=== PATIENT | female | born 1975 | race Caucasian/White ===

== ENCOUNTER → 2017-10-05 15:26 | Outpatient (CLI) | payer OTHER, SELFPAY ==
[2017-10-12 11:42] LABS: HPV APTIMA, High Risk Negative (Negative)
== END ==
PROVIDERS: Visit Provider Obstetrics & Gynecology
DX: Z12.4 Encounter for screening for malignant neoplasm of cervix (principal)
CPT/HCPCS: 88175; G0145

== ENCOUNTER 2018-02-27 23:53 | Emergency (ER) | payer OTHER, SELFPAY ==
[2018-02-27 23:55] VITALS: BP 119/73; PULSE 99; RESP 18; TEMP 36.7; O2SAT 99; BMI 24.3
[2018-02-28] MEDS: 0.9% Normal Saline 1,000 ML 999 ML IV (00:16)
[2018-02-28] MEDS: Metoclopramide 10 MG/2 ML Vial IV (00:16)
[2018-02-28] MEDS: DiphenhydrAMINE 50 MG/ML Syringe IV (00:18)
[2018-02-28] MEDS: Ketorolac 30 MG/ML Syringe IV (00:20)
--- NOTE | 2018-02-28 00:40 | ED.VISSUMM ---
- ER Visit Summary Date of Service: 02/28/18 Chief Complaint: Headache History of Present Illness: The patient is a 42 F who goes to [facility]. She reports that she has a headache that began today. Is gradually gotten worse. It is a sharp pain over the left episcopal and left side of her head. Zeta 10 at worst and currently. Is worsened by light. She is taken Maxalt without relief. She has been nauseated. No vomiting. No fever. No change in her vision. No numbness or weakness. No recent injury to her head. She reports that she has had similar headaches multiple times in the past. Physical Examination: Vitals: Stable. Afebrile. General: Well-nourished and well-developed. Head: Normocephalic atraumatic. Neck: Supple, no lymphadenopathy. No JVD. Nontender. Cardiovascular: Regular rate and rhythm. No murmurs. Respiratory: No respiratory distress. Clear to auscultation bilaterally. Abdominal: Soft, nontender, nondistended, normal bowel sounds. No guarding, rebound, or peritoneal signs. Back: Nontender. Extremities: Nontender, no edema. Skin: Normal color, no rash. Neurologic: Alert and oriented ?3. Cranial nerves II through XII are intact. Normal strength and sensation. Psych: Normal affect. Emergency Department Course and Treatment: Patient had an IV placed. She was given Toradol, Reglan, Benadryl, and dexamethasone IV. She has had significant relief. Treatment Plan: Patient be discharged instructions to follow-up her primary care physician 1-2 days if not improving. Return to the emergency department for any worsening symptoms. Disposition: To home in improved and stable condition. Impression: 1. Migraine headache. This note was generated with [employer] software. It may contain incorrect words, spelling, and punctuation that were not noted in review of the chart prior to signing ED Disposition - Plan for ED Patient: Chief Complaint: Headache Instructions: ED Headache Migraine Referrals: Darci Nguyen MD [Primary Care Provider] - 1-2 Days if not improving
[2018-02-28 01:00] VITALS: BP 114/68; PULSE 78; RESP 18; O2SAT 99
== END 2018-02-28 01:01 | disposition home or self-care (01) ==
LOC: ED 02-28 00:35
PROVIDERS: Emergency Provider Emergency Medicine; Family Provider Family Medicine; PCP Family Medicine
DX: G43.909 Migraine, unspecified, not intractable, without status migrainosus (principal); F32.9 Major depressive disorder, single episode, unspecified; Z79.899 Other long term (current) drug therapy
CPT/HCPCS: 96361; 96374; 96375; 99283; J7030; A4216

== ENCOUNTER 2020-11-15 09:26 | Day surgery (SDC) | payer OTHER, SELFPAY ==
[2020-11-15] VITALS (7 sets, daily range): BP systolic 104–117; BP diastolic 73–87; PULSE 76–86; RESP 16; TEMP 36.1–36.7; O2SAT 96–100; BMI 27.2
[2020-11-15 10:05] LABS: Internal QC Validated? YES +Cl - CLEAR BKGD; Pregnancy, Urine Negative Negative
[2020-11-15] MEDS: Lactated Ringers 1,000 ML 100 ML IV (10:21)
--- NOTE | 2020-11-15 10:30 | IMM_PTH ---
PATIENT: YESENIA COOL LOC: EN U#:[id number] AGE/SX: 44/F ROOM: RE11/15/[address]: Dr. Brandon Sage DO : 1975 BED: DIS: 11/15/2020 SPEC #: [id number] RECD: 11/16/20 10:55 STATUS: VERITO REQ #: [id number] SHERMAN: 11/15/20 10:[address]: Brandon Sage DEPT: IMMUNOHISTOCHEMISTRY RECD BY: Jolanta Callahan ENTERED: 11/16/20 10:56 SP TYPE: IMMUNO OTHR DR: Jennifer Herrera, RN PALLIATIVE-C Tissues: A - Stomach, NOS Procedures: H Pylori (initial) PHYSICIAN & INSTITUTION [facility] [id number] SPECIMEN INFORMATION: Tissue Source: A ? Antrum biopsy Clinical Info: Abdomen pain, GERD Specimen Number: [id number] CPT code: 56337 METHODOLOGY: Deparaffinized sections of prefer/formalin-fixed tissue or PAP/DQ stained slides are incubated with monoclonal/polyclonal antibodies/oligonucleotide probes. Localization is made via biotin free immunoperoxidase method. Appropriate controls are performed and reacted as expected. Results on target cell population are indicated in the following table: RESULTS: ANTIBODY / CLONE RESULT Block A H Pylori (polyclonal) negative These tests were developed and their performance characteristics determined by [facility]. They may not have been cleared or approved by the U.S. Food and Drug Administration. The FDA has determined that such clearance or approval is not necessary. INTERPRETATION: A. Antrum biopsy: Negative for Helicobacter pylori organisms. AM:hailey 11/16/2020
--- NOTE | 2020-11-15 10:30 | EGD_PTH ---
PATIENT: YESENIA COOL LOC: EN U#:[id number] AGE/SX: 44/F ROOM: RE11/15/[address]: Dr. Brandon Sage DO : 1975 BED: DIS: 11/15/2020 SPEC #: [id number] RECD: 11/15/20 13:15 STATUS: VERITO RECaty #: [id number] SHERMAN: 11/15/20 10:[address]: Brandon Sage DEPT: SURGICAL PATHOLOGY RECD BY: Bernice Nelson ENTERED: 11/15/20 13:37 SP TYPE: EGD BIOPSY OT DR: Jennifer Herrera, PATIENT FINANCIAL SERVICES COORDINATOR-C Tissues: A - Gastric mucous membrane B - Duodenum, NOS C - Esophagus, NOS Procedures: Special Stain Group II Surgery Specimen Level IV Alcian Blue/PAS (control) HEADER OPERATION: EGD ([facility]) PRE-OP DIAGNOSIS: Abdomen pain, GERD TISSUE SUBMITTED: A ? Biopsy antrum for H. pylori and pain, B ? Biopsy duodenum, C ? Biopsy distal esophagus MICROSCOPIC DIAGNOSIS A. Gastric antrum, biopsy: Chronic gastritis. See comment. B. Duodenum, biopsy: No pathologic change. C. Distal esophagus, biopsy: Gastroesophageal junctional mucosa with chronic inflammation. No evidence of goblet cell metaplasia. Consistent with reflux esophagitis. See comment. AM:hailey 11/16/2020 COMMENT A. The results of immunohistochemistry for Helicobacter pylori will be reported separately ([id number]). C. Alcian blue/PAS stain with matched control supports the above diagnosis. MICROSCOPIC DESCRIPTION Slides are reviewed. GROSS DESCRIPTION A - Received in fixative is one container labeled with the patient's name and designated antrum biopsy. The specimen consists of multiple irregular fragments of light brooks soft tissue that in aggregate measure 1 x 0.3 x 0.1 cm. The specimen is totally submitted in one cassette. B - Received in fixative is one container labeled with the patient's name and designated biopsy duodenum. The specimen consists of multiple irregular fragments of light brooks soft tissue that in aggregate measure 2 x 0.3 x 0.1 cm. The specimen is totally submitted in one cassette. C - Received in fixative is one container labeled with the patient's name and designated biopsy distal esophagus. The specimen consists of multiple irregular fragments of light brooks soft tissue that in aggregate measure 0.5 x 0.3 x 0.1 cm. The specimen is totally submitted in one cassette. / SJ:rg 11/15/20 TC:3 CPT: 27646 x3, 20298
--- NOTE | 2020-11-15 10:59 | PCM.HP.BLA ---
History and Physical Date of Admission: 11/15/20 HPI HPI Details: AMINAH COOL, is a 44 F who presents to the office today for evaluation of abdominal pain and a possible anal fissure. Starting in March she would experience bilateral upper quadrants a burning sensation and chest pain would occur when she started getting hungry with varying intensity. She took prilosec for 14 days on three occasions in the last six months and this resolved her issues. It did come back so she tried a probiotic. And it helped a little bit but did not completely resolve her symptoms. She suffers from migraines and is not sure if her migraines are contributing to her symptoms of abdominal pain. She does get nauseous. And she also gets intermittent chest discomfort associated with worsening heartburn. She is also having difficulty on and off for years with a hemorrhoid issue that is most painful during , this summer was the worst she's had. Pain has improved but now there is a hard and sore spot located externally. Uses witch griselda, preparation H, numbing cream which helps during a flare. ROS Const Constitutional: Positive for headache(s) ENT ENT: Positive for headache(s) and sore throat Gastro GI: Positive for abdominal pain, bloating, constipation and heartburn Musc Musculoskeletal: Positive for joint pain, muscle weakness, numbness, stiffness and tingling Neuro Neurology: Positive for headache(s), numbness and tingling Exam Const General: cooperative and comfortable Nutritional Appearance: average body habitus and well nourished [facility] Head: normal to inspection Ears: hearing grossly normal bilaterally Nose: external nose normal Face and sinus: normal facial exam Mouth: oral mucosae normal Throat: posterior oropharynx normal Eyes General: appearance normal, both eyes and all related structures Neck Neck: normal visual inspection Chest Chest palpation & inspection: normal inspection of the chest and normal palpation of entire chest wall Resp Effort & Inspection: normal respiratory effort Auscultation: Bilateral: Clear to Auscultation Cardio Palpation: normal PMI Rate: regular rate Rhythm: regular rhythm GI Inspection: normal to inspection Auscultation: normal bowel sounds Percussion: normal to percussion Palpation: no hepatosplenomegaly Rectal Exam: hemorrhoids Other: External hemorrhoid tag Skin General: no rashes or lesions noted Neuro General: patient alert Extrem General: normal to inspection Psych Affect: normal affect Quality Reporting Tobacco Screening ([facility] 138) Smoking Status: Never smoker Assessment and Plan Assessment and Plan (1) Hemorrhoidal skin tag: Status: Acute Plan - Dr. Taylor Friend, DO: I will send her combination cream of diltiazem and lidocaine. Hopefully over 6-week. This will soften it and allow it to either fall off or completely shrink. (2) GERD (gastroesophageal reflux disease): Status: Acute Plan - Dr. Taylor Friend, DO: I would not put her back on a PPI at this time. We will get an upper endoscopy to evaluate her upper GI tract for any structural abnormality such as hiatal hernia, peptic ulcer disease, Public stenosis or gastritis and duodenitis. (3) Abdominal pain: Status: Acute Plan - Dr. Taylor Friend, DO: I think her abdominal pain is mostly secondary to her gastric issues. We will evaluate her upper GI tract thoroughly and make recommendations accordingly. Thank you very much for allowing me to participate in the care of this patient. This updated H&P from when the patient was seen in the office. Nothing has changed since she was seen in the office
--- NOTE | 2020-11-15 11:15 | OP.EGD_ITS ---
Patient Name: Heena Batres Procedure Date: 11/15/2020 10:56 AM Date of : 1975 Age: 44 Procedure: Upper GI endoscopy Indications: Epigastric abdominal pain Providers: Brandon Sage DO Referring MD: Jennifer Herrera Medicines: Monitored Anesthesia Care Patient Profile: This is a 44 year old female. Refer to note in patient chart for documentation of history and physical. Patient has symptoms of acute epigastric abdominal pain. The symptoms first began October. Complications: No immediate complications. Procedure: Pre-Anesthesia Assessment: - Prior to the procedure, a History and Physical was performed, and patient medications and allergies were reviewed. The patient is competent. The risks and benefits of the procedure and the sedation options and risks were discussed with the patient. All questions were answered and informed consent was obtained. Patient identification and proposed procedure were verified by the physician in the pre-procedure area. Mental Status Examination: alert and oriented. Airway Examination: normal oropharyngeal airway and neck mobility. Respiratory Examination: clear to auscultation. CV Examination: normal. Prophylactic Antibiotics: The patient does not require prophylactic antibiotics. Prior Anticoagulants: The patient has taken no previous anticoagulant or antiplatelet agents. ASA Grade Assessment: II - A patient with mild systemic disease. After reviewing the risks and benefits, the patient was deemed in satisfactory condition to undergo the procedure. The anesthesia plan was to use moderate sedation / analgesia (conscious sedation). Immediately prior to administration of medications, the patient was re-assessed for adequacy to receive sedatives. The heart rate, respiratory rate, oxygen saturations, blood pressure, adequacy of pulmonary ventilation, and response to care were monitored throughout the procedure. The physical status of the patient was re-assessed after the procedure. After obtaining informed consent, the endoscope was passed under direct vision. Throughout the procedure, the patient's blood pressure, pulse, and oxygen saturations were monitored continuously. The Endoscope was introduced through the mouth, and advanced to the second part of duodenum. The upper GI endoscopy was accomplished without difficulty. The patient tolerated the procedure well. Moderate Sedation: Moderate (conscious) sedation was administered by the endoscopy nurse and supervised by the endoscopist. The patient's oxygen saturation, heart rate, blood pressure and response to care were monitored. Scope In: 11:03:40 AM Scope Out: 11:10:37 AM Total Procedure Duration Time 0 hours 6 minutes 57 seconds Findings: LA Grade A (one or more mucosal breaks less than 5 mm, not extending between tops of 2 mucosal folds) esophagitis with no bleeding was found 34 to 35 cm from the incisors. Biopsies were taken with a cold forceps for histology. Verification of patient identification for the specimen was done. Estimated blood loss was minimal. Three non-bleeding cratered gastric ulcers with no stigmata of bleeding were found in the gastric antrum. The largest lesion was 5 mm in largest dimension. Biopsies were taken with a cold forceps for histology. Localized mild inflammation characterized by congestion (edema) was found in the duodenal bulb. Biopsies were taken with a cold forceps for histology. Impression: - LA Grade A reflux esophagitis. Biopsied. - Non-bleeding gastric ulcers with no stigmata of bleeding. Biopsied. - Duodenitis. Biopsied. Recommendation: - Await pathology results. - Repeat upper endoscopy in 1 year for surveillance. - Return to GI clinic in 1 week. - Continue present medications. Procedure Code(s): --- Professional --- 51975, Esophagogastroduodenoscopy, flexible, transoral; with biopsy, single or multiple CPT copyright 2017 [employer]. All rights reserved. The codes documented in this report are preliminary and upon category analyst review may be revised to meet current compliance requirements. Brandon Sage DO 11/15/2020 11:14:57 AM This report has been signed electronically. Number of Addenda: 1 Note Initiated On: 11/15/2020 10:56 AM Addendum Number: 1 Addendum Date: 10/06/2021 4:30:24 PM MAC was used instead of moderate sedation for this patient. Brandon Sage DO 10/06/2021 4:30:29 PM This report has been signed electronically.
--- NOTE | 2020-11-15 11:15 | OP.CCLET_ITS ---
10/06/2021 Jennifer Herrera Re : Upper GI endoscopy procedure for Heena Batres Dear Javier This procedure was performed on Sunday, November 15, 2020. My impressions and recommendations are as follows: Impressions : - LA Grade A reflux esophagitis. Biopsied. - Non-bleeding gastric ulcers with no stigmata of bleeding. Biopsied. - Duodenitis. Biopsied. Recommendations : - Await pathology results. - Repeat upper endoscopy in 1 year for surveillance. - Return to GI clinic in 1 week. - Continue present medications. My findings are described in the full procedure note, which is enclosed. If I can be of further assistance, please feel free to contact me at . Sincerely, Brandon Friend, 11/15/2020 11:14:57 AM This report has been signed electronically.
== END 2020-11-15 11:55 | disposition home or self-care (01) ==
LOC: EN 09:33 → AC 09:34
PROVIDERS: Anesthesiology; PCP Nurse Practitioner Primary Care; Referring Provider Nurse Practitioner Primary Care; Visit Provider Internal Medicine Gastroenterology
PROC: 0DJ08ZZ Inspection of Upper Intestinal Tract, Via Natural or Artificial Opening Endoscopic (ICD-10-PCS; CPT 43235; principal; 2020-11-15 10:25)
DX: K21.00 Gastro-esophageal reflux disease with esophagitis, without bleeding (principal); K25.9 Gastric ulcer, unspecified as acute or chronic, without hemorrhage or perforation; K29.80 Duodenitis without bleeding; K64.4 Residual hemorrhoidal skin tags; K29.50 Unspecified chronic gastritis without bleeding; R10.13 Epigastric pain; E78.5 Hyperlipidemia, unspecified; Z79.899 Other long term (current) drug therapy
CPT/HCPCS: 43239; 81025; 88305; 88313; 88342; J7120; J2405

== ENCOUNTER 2021-02-16 08:50 | Outpatient (CLI) | payer OTHER, SELFPAY ==
[2021-02-16 09:39] LABS: Free T3 3.1 pg/mL (2.18-3.98); T4 Total, Thyroxin 8.9 ug/dL (4.8-13.9); Thyroid Stim Hormone (TSH) 1.97 uIU/mL (0.358-3.74)
== END 2021-02-16 23:59 | disposition short-term general hospital (02) ==
PROVIDERS: PCP Nurse Practitioner Primary Care; Referring Provider Surgery; Visit Provider Surgery
DX: E04.1 Nontoxic single thyroid nodule (principal)
CPT/HCPCS: 36415; 84436; 84443; 84481

== ENCOUNTER 2021-02-21 10:44 | Outpatient (CLI) | payer OTHER, SELFPAY ==
--- NOTE | 2021-02-18 15:15 | FLU_PTH ---
PATIENT: YESENIA COOL LOC: [facility] U#:[id number] AGE/SX: 45/F ROOM: RE02/21/[address]: Dr. Saul Richmond MD : 1975 BED: DIS: 02/21/2021 SPEC #: [id number] RECD: 02/21/21 10:39 STATUS: VERITO RECaty #: [id number] SHERMAN: 02/18/21 15:[address]: aSul Richmond DEPT: CYTOLOGY RECD BY: Bernice Nelson ENTERED: 02/21/21 11:09 SP TYPE: Fluid OTHR DR: Jennifer Herrera, IMAGING SERVICES DIRECTOR-C Tissues: A - Thyroid gland, NOS B - Thyroid gland, NOS Procedures: Special Stain Group II Surgery Specimen Level IV Cytospin Fluid Cytology Other HEADER OPERATION: Right thyroid nodule fine needle aspiration PRE-OP DIAGNOSIS: Right thyroid nodule TISSUE SUBMITTED: A ? Right thyroid nodule fluid, B ? Right thyroid nodules x4 slides DIAGNOSIS CYTOLOGY A. Right thyroid nodule fluid, FNA (cytospin and cell block): Acellular specimen. See comment. B. Right thyroid nodule, FNA (smears): Consistent with benign colloid nodule. Adequate for evaluation. See comment. JOE:hailey 02/22/2021 COMMENT A. Follicular cells are not seen. Correlation with clinical, radiologic findings and appropriate follow up are necessary. Case has been reviewed in consultation with Dr. Lyn who concurs with the above diagnosis. IDC:AM CYTOLOGY STUDY Slides are reviewed. CYTOLOGY GROSS A - Received is 30 ml of pink cloudy fluid with particles labeled with the patient's name and and designated per the requisition as right thyroid nodule. Submitted for cytology preparation including cell block. B - Received are four smears labeled with the patient's name and designated per the requisition as right thyroid nodule. Submitted for staining. / hailey 02/21/2021 TC:5 CPT: 94606, 72737 x2
== END 2021-02-21 23:59 | disposition short-term general hospital (02) ==
LOC: LABSPEC 10:45
PROVIDERS: PCP Nurse Practitioner Primary Care; Referring Provider Surgery; Visit Provider Surgery
DX: E04.1 Nontoxic single thyroid nodule (principal)
CPT/HCPCS: 88108; 88161; 88305; 88313

== ENCOUNTER → 2022-02-16 | Outpatient (CLI) | payer OTHER, SELFPAY ==
--- NOTE | 2022-02-16 16:22 | US_ITS ---
STUDY: THYROID ULTRASOUND REASON FOR EXAM: Female, 46 years old. Thyroid nodule TECHNIQUE: Ultrasound evaluation of the thyroid was performed with real-time and static altamirano-scale imaging. COMPARISON: Comparison is made with prior study dated 08/01/2012. FINDINGS: RIGHT LOBE: The right lobe of the thyroid gland is mildly enlarged and measures 5.1 cm x 1.8 cm x 1.4 cm. There is a homogeneous echotexture. There are 4 subcentimeter hypoechoic solid/cystic nodules scattered throughout the right lobe. The largest measures 8 mm x 7 mm x 4 mm. LEFT LOBE: The left lobe of the thyroid gland measures 3.9 cm x 1.3 cm x 1.0 cm. There is a homogeneous echotexture. There is a 3 mm x 3 mm x 2 mm colloid cyst in the midportion of the left lobe. ISTHMUS: The isthmus measures 2 mm. The regional lymph nodes are normal. US/Thyroid IMPRESSION: 4, subcentimeter solid/cystic nodules in the right lobe of the thyroid. The largest measures 8 mm x 7 mm x 4 mm. 3 mm x 3 mm x 2 mm colloid cyst in the midportion of the left lobe of the thyroid. Electronically Signed: Herberth Winkler MD at 10:30 EST ,
== END | disposition home or self-care (01) ==
PROVIDERS: PCP Nurse Practitioner Primary Care; Referring Provider Surgery; Visit Provider Surgery
DX: E04.1 Nontoxic single thyroid nodule (principal)
CPT/HCPCS: 76536

== ENCOUNTER → 2022-05-18 | Outpatient (CLI) | payer OTHER, SELFPAY ==
[2022-05-25 13:07] LABS: HPV APTIMA, High Risk Negative (Negative)
== END | disposition home or self-care (01) ==
PROVIDERS: PCP Nurse Practitioner Primary Care; Referring Provider Obstetrics & Gynecology; Visit Provider Obstetrics & Gynecology
DX: Z12.4 Encounter for screening for malignant neoplasm of cervix (principal)
CPT/HCPCS: 87624; 88175; G0145

== ENCOUNTER → 2022-06-28 | Outpatient (CLI) | payer OTHER, SELFPAY | END | disposition home or self-care (01) | LOC: LABSPEC 16:38 | PROVIDERS: PCP Nurse Practitioner Primary Care; Referring Provider Obstetrics & Gynecology; Visit Provider Obstetrics & Gynecology | DX: N89.8 Other specified noninflammatory disorders of vagina (principal) | CPT/HCPCS: 87070; 87205 ==

== ENCOUNTER → 2023-01-22 | Outpatient (CLI) | payer OTHER, SELFPAY ==
--- NOTE | 2023-01-22 15:30 | BI_ITS ---
MAMMOGRAPHY - BILATERAL SCREENING REASON FOR EXAM: Female, 47 years old. Routine annual screening examination. PERTINENT HISTORY: Aunt with breast cancer. TECHNIQUE: Digital bilateral breast blake (3D mammographic acquisition) in the CC and MLO projections. 2-D mediolateral oblique (MLO) and craniocaudad (CC) views of both breasts were obtained. CAD: Full Field Digital Mammography with Computer Added Detection was performed. COMPARISON: Comparison is made with prior study examination December 14, 2021. FINDINGS: Breast Composition: The breasts are heterogeneously dense, which may obscure small masses. There are no dominant masses or suspicious calcifications. No other significant abnormalities are identified. There has been no significant change since the prior study. BI/SCRN MAMM (CAD)W/BLAKE BILAT IMPRESSION: Stable bilateral screening mammogram. Yearly follow-up mammogram recommended. (A) ASSESSMENT CATEGORY: BIRADS Category 1: Negative. A letter regarding these results will be sent to the patient by the facility within 30 days. Approximately 10% of breast cancers are not detected by mammography. A normal mammogram should not delay biopsy of a clinically suspicious abnormality. [id number] Electronically Signed: Herberth Winkler MD at 8:53 EST ,
== END | disposition home or self-care (01) ==
LOC: OPBI 15:30
PROVIDERS: PCP Nurse Practitioner Primary Care; Referring Provider Obstetrics & Gynecology; Visit Provider Obstetrics & Gynecology
DX: Z12.31 Encounter for screening mammogram for malignant neoplasm of breast (principal)
CPT/HCPCS: 77063; 77067

== ENCOUNTER → 2023-02-19 | Outpatient (CLI) | payer OTHER, SELFPAY ==
--- NOTE | 2023-02-19 15:57 | US_ITS ---
STUDY: THYROID ULTRASOUND REASON FOR EXAM: Female, 47 years old. yearly f/u thyroid nodule TECHNIQUE: Ultrasound evaluation of the thyroid was performed with real-time and static altamirano-scale imaging. COMPARISON: 02/16/2022 FINDINGS: RIGHT LOBE: The right lobe of the thyroid gland measures 4.8 x 1.4 x 1.4 cm. There is a homogeneous echotexture. Nodule 1: No change in the 12 x 5 x 7 mm solid hypoechoic wider than tall ill-defined margin nodule with no echogenic foci (TR 4) in the anterior right lobe and follow-up ultrasound is recommended in one year. Nodule 2: No change in the 7 x 3 x 5 mm solid hypoechoic wider than tall ill-defined margin nodule with no echogenic foci (TR 4) in the anterior right lobe consistent with an adenoma. Nodule 3: No change in the 5 x 4 x 5 mm solid hypoechoic wider than tall ill-defined margin nodule with no echogenic foci (TR 4) in the mid right lobe consistent with an adenoma. LEFT LOBE: The left lobe of the thyroid gland measures 4.2 x 1.2 x 1.1 cm. There is a homogeneous echotexture. There are no demonstrated solid, cystic or complex lesions. ISTHMUS: The isthmus measures 3 mm thick. . The regional lymph nodes are normal. US/Thyroid IMPRESSION: No change in multinodular thyroid gland. Electronically Signed: Gibran Fuentes MD at 23:24 EST ,
--- OUTSIDE RECORDS SUMMARY | 2023-02-19 16:08 | XMS RPT_ITS | CCD ---
Author Name Unknown Address [address] [address] [facility] [address] [place] [address] Organization [facility] Care Team Providers Care Glass Checker Name Role Phone BENIGNO YARBROUGH Unavailable Unavailable FAB PLUG GROWER-FIELD ACCOUNT DIRECTOR, ADRI Barragan Primary Care Physicia n Unknown, Referring Provider Unavailable Unav ailable Unavailable Unavailable Ms. Ever Lung Yan Attending Unavailable UNKNOWN, PCP Primary Care Unavailable Ever, Ms. Lung Yan Referring Unavailable UNKNOWN, PCP Primary Care Unavailable Ever, Ms. Lung Yan Referring Unavailable Ever, Ms. Lung Yan Attending Unavailable RUDI PLUG GROWER-FIELD ACCOUNT DIRECTOR, KELSEA Attending Unavailab le FAB PLUG GROWER-FIELD ACCOUNT DIRECTOR, ADRI S Primary Care Unava ilable FAB PLUG GROWER-FIELD ACCOUNT DIRECTOR, ADRI S Attending Unava ilable FAB PLUG GROWER-FIELD ACCOUNT DIRECTOR, ADRI S Primary Care Unava ilable FAB PLUG GROWER-FIELD ACCOUNT DIRECTOR, ADRI S Attending Unava ilable FAB PLUG GROWER-FIELD ACCOUNT DIRECTOR, ADRI S Primary Care Unava ilable REFERRING, GORDON DUBOIS ID Attending Unavailable FAB PLUG GROWER-FIELD ACCOUNT DIRECTOR, ADRI S Primary Care Unava ilable Medications Current Medications Medication Drug Class(es) Dates Sig (Normalized) Sig (Original) cetirizine hydrochloride 10 mg oral tablet (7 sources) Histamine-1 Receptor Antagonist Start: 10-05-2014 Zyrtec 10 mg oral tablet (NF) Dose : 10 mg = 1 tab(s), Oral, qDay Start Date: 10/05/14 Status: Ordered Completed/Discontinued Medications Medication Drug Class(es) Dates Sig (Normalized) Sig (Original) 1 ml alirocumab 75 mg/ml auto-injector (1 source) PCSK9 Inhibitor Start: 01-16-2022 inject 1 mL by subcutaneous injection every other week Praluent Pen 75 mg/mL subcutaneous solution Dose : 75 mg = 1 mL, Subcutaneous, q2wk, # 2 mL, 3 Refill(s), Pharmacy: [facility]/pharmacy #[id number], 171, cm, 01/11/22 14:48:00 EST, Height Start Date: 01/16/22 Status: Ordered buPROPion hydrochloride 100 mg oral tablet (7 sources) Aminoketone Start: 12-28-2021 take 1 tablet by mouth once daily buPROPion HCl - 100 MG Oral Tablet TAKE 1 TABLET EVERY 12 HOURS DAILY. Quantity: 60 Refills: 2 Ordered: 11-Apr-2022 Ever PLUG GROWER-FIELD ACCOUNT DIRECTOR, Lung Start : 28-Dec-2021 Active Problems Problem Classification Problem Date Documented Date Episodic/Chronic Abdominal pain (4 sources) Right upper quadrant pain 06-07-2020 Episodic Anxiety disorders (1 source) Anxiety 11-17-2021 Chronic Calculus of urinary tract (4 sources) Kidney stone 10-05-2014 Episodic Chronic kidney disease (1 source) Chronic kidney disease 11-20-2021 Chronic Conditions associated with dizziness or vertigo (2 sources) Vertigo; Translations: [Dizziness and giddiness] Episodic Disorders of lipid metabolism (4 sources) Hyperlipidemia 01-20-2020 Chronic Headache, including migraine (8 sources) Migraine without aura, not intractable, with status migrainosus; Translations: [Migraine] Onset: 09-22-2016 10-05-2014 Chronic Headache; including migraine (3 sources) Chronic headache disorder 01-20-2020 Episodic Malaise and fatigue (1 source) Fatigue 11-17-2021 Episodic Mood disorders (7 sources) Depressive disorder; Translations: [Depressive disorder, not elsewhere classified] 10-05-2014 Chronic Nonspecific chest pain (4 sources) Chest pain 06-07-2020 Episodic Other nutritional; endocrine; and metabolic disorders (3 sources) H/O: metabolic disorder; Translations: [Personal history of other endocrine, metabolic, and immunity disorders] Episodic Spondylosis; intervertebral disc disorders; other back problems (1 source) Neck pain; Translations: [Cervicalgia] Episodic Thyroid disorders (6 sources) Goiter; Translations: [Thyroid nodule] 12-08-2020 Chronic Unclassified (4 sources) Cancer cervix screening status 12-16-2019 Unclassified (16 sources) Patient encounter status 12-16-2019 Results Test Name Value Interpretation Reference Range Facil ity Vital Signs Date Time Vital Sign Value Performing Clinician Alis watson 08-30-2022 15:56-0400 Body height 152.4 cm Referring Provider Unknown TZ-Cwvajledn-Hdlkg a 170 DO Work Phone: 08-30-2022 15:56-0400 Body mass index (BMI) [Ratio] 34.18 kg/m2 Referring Provider Unknown GR-Mridmcyur-Ulxtf a 170 DO Work Phone: 08-30-2022 15:56-0400 Body surface area Derived from formula 1.76 m2 Referring Provider Unknown KK-Lottbgbzj-Gewku a 170 DO Work Phone: 08-30-2022 15:56-0400 Body temperature 98.2 [degF] Referring Provider Unknown RD-Wevywvkrl-Mexjq a 170 DO Work Phone: 08-30-2022 15:56-0400 Body weight 79.38 kg Referring Provider Unknown LX-Ypafrtygc-Dhaiw a 170 DO Work Phone: 08-30-2022 15:56-0400 Diastolic blood pressure 74 mm[Hg] Referring Provider Unknown TN-Velxgteuj-Tfcrl a 170 DO Work Phone: 08-30-2022 15:56-0400 Heart rate 88 /min Referring Provider Unknown TC-Mvodaxadp-Oqarf a 170 DO Work Phone: 08-30-2022 15:56-0400 Respiratory rate 16 /min Referring Provider Unknown BI-Xeseslojb-Pamfr a 170 DO Work Phone: 08-30-2022 15:56-0400 Systolic blood pressure 116 mm[Hg] Referring Provider Unknown DX-Xwyoguqor-Yqmiw a 170 DO Work Phone: 12-28-2021 15:08-0500 Body height 170.18 cm Referring Provider Unknown IR-Upzqhfrea-Whwva a 170 DO Work Phone: 12-28-2021 15:08-0500 Body mass index (BMI) [Ratio] 26.78 kg/m2 Referring Provider Unknown ID-Jahfarlfw-Wbzit a 170 DO Work Phone: 12-28-2021 15:08-0500 Body surface area Derived from formula 1.89 m2 Referring Provider Unknown VL-Gzpscmreu-Eqwme a 170 DO Work Phone: 12-28-2021 15:08-0500 Body temperature 97.7 [degF] Referring Provider Unknown OQ-Kxnpivmmz-Fidqo a 170 DO Work Phone: 12-28-2021 15:08-0500 Body weight 77.57 kg Referring Provider Unknown GQ-Qjjolwwuf-Zwrwi a 170 DO Work Phone: 12-28-2021 15:08-0500 Diastolic blood pressure 80 mm[Hg] Referring Provider Unknown VQ-Hypvvzpru-Evvdg a 170 DO Work Phone: 12-28-2021 15:08-0500 Heart rate 96 /min Referring Provider Unknown CU-Vgnzjksru-Ojfke a 170 DO Work Phone: 12-28-2021 15:08-0500 Respiratory rate 12 /min Referring Provider Unknown QU-Mmsgjdsdu-Iqhqx a 170 DO Work Phone: 12-28-2021 15:08-0500 Systolic blood pressure 120 mm[Hg] Referring Provider Unknown NU-Duxqnjwoz-Lqekl a 170 DO Work Phone: Encounters Encounter Date Encounter Type Care Provider Facility Start: 08-30-2022 Office outpatient vi sit 25 minutes Referring Provider Unknown MR-Dxmkatnzq-Sudfkp 170 DO Work Phone: Start: 06-05-2022 End: 06-06-2022 ambulatory KELSEA GRIJALVA PLUG GROWER-FIELD ACCOUNT DIRECTOR Facility:B Start: 04-11-2022 AUDIT Referring Prov ider Unknown FQ-Uwihvzcxr-Xpkdzmcp 204 DO Work Phone: Start: 02-23-2022 End: 02-24-2022 ambulatory PHY WO ID REFERRING Facility:B Start: 02-23-2022 End: 02-23-2022 Patient encounter procedure PHY WO ID REFERRING [facility] Start: 02-15-2022 ambulatory Ms. Lung Yan Ever Faci lity:[id number] Start: 12-28-2021 Office outpatient ne w 60 minutes Referring Provider Unknown MM-Aictxbjxa-Woamav 170 DO Work Phone: Start: 12-28-2021 ambulatory PCP UNKNOWN Facility:[id number] Start: 12-14-2021 End: 12-15-2021 ambulatory ADRI SANON PLUG GROWER-FIELD ACCOUNT DIRECTOR Facility:B Start: 11-14-2021 End: 11-15-2021 ambulatory ADRI SANON PLUG GROWER-FIELD ACCOUNT DIRECTOR Facility:B Start: 11-14-2021 End: 11-14-2021 Patient encounter procedure ADRI SANON PLUG GROWER-FIELD ACCOUNT DIRECTOR [facility] Start: 01-13-2021 End: 01-13-2021 Patient encounter procedure ADRI SANON PLUG GROWER-FIELD ACCOUNT DIRECTOR [facility] Start: 12-29-2020 End: 12-29-2020 Patient encounter procedure ADRI SANON PLUG GROWER-FIELD ACCOUNT DIRECTOR [facility] Start: 09-22-2016 [facility] Procedures Date Procedure Procedure Detail Performing Clinician Entire ankle region (body structure) ADRILAURA SANON PLUG GROWER-FIELD ACCOUNT DIRECTOR Laparoscopy ADRI FAB PLUG GROWER-FIELD ACCOUNT DIRECTOR Operation on fracture Referr ing Provider Unknown Plan of Treatment Date Care Activity Detail Author Start: 11-29-2022 FUVGENERAL, Provider : Sina Curtis, Status: Pen, Time: 4:00 PM FUVGENERAL, Provider: Sina Curtis, Status: Pen, Time: 4:00 PM FM-Tbqxjjhse-Bsxyez 170 DO Work Phone: Start: 08-16-2022 FUVGENERAL, Provider : Sina Curtis, Status: Pen, Time: 11:00 AM FUVGENERAL, Provider: Snia Curtis, Status: Pen, Time: 11:00 AM TL-Hdcprtubo-Jznwvuli 204 DO Work Phone: Start: 02-15-2022 FUVGENERAL, Provider : Sina Curtis, Status: Pen, Time: 4:30 PM FUVGENERAL, Provider: Sina Curtis, Status: Pen, Time: 4:30 PM XR-Yicdlfwvv-Renjia 170 DO Work Phone: Immunizations Immunization Date Immunization Notes Care Provider Fa moriah 10-08-2020 SARS-CoV-2 mRNA (tozinameran) vaccine PHY REFERRING [facility] Payers Date Payer Category Payer Private Health Insurance [id number] 1975 Unknown [id number] [id number] 1975 Unknown [id number] 2.16. [id number] 1975 Unknown [id number] 2.16.8 [id number] 1975 Unknown [id number] 2.16.8 [id number] 1975 Unknown [id number] 2.16.8 [id number] 1975 Unknown [id number] 2.16.8 [id number] Private Health Insurance [id number] Unknown [employer] Social History Date Type Detail Facility Start: 12-19-2018 Ex-smoker (finding) [facility] Evaluation + Plan note Radiology Note Date & Type Note Facility Evaluation + Plan note Future Appointments Appointment Date:01/13/2021 04:00:00 PM Scheduled Provider: Location:[facility] Appointment Type:US Thyroid Future Scheduled TestsUS Thyroid 01/13/21 [facility] Evaluation + Plan note Note Date & Type Note Facility Evaluation + Plan note Future Appointments Appointment Date:11/17/2021 03:30:00 PM Scheduled Provider:ADRI SANON Location:[facility] [place] Appointment Type:PC Wellness Annual [facility] Evaluation + Plan note Laboratory Note Date & Type Note Facility Evaluation + Plan note Future Appointments Appointment Date:04/12/2022 03:30:00 PM Scheduled Provider:KELSEA GRIJALVA Location[facility] [place] [facility] Appointment Type:CV OV Future Scheduled TestsVitamin B12 Level 11/17/21Complete Blood Count 11/17/21Lipid Profile 01/11/22 [facility] History of Present illness Narrative Note Date & Type Note Facility History of Present illness Narrative Patient with history significant for chronic migraine without aura, GI ulcers, depression, and high cholesterol here today to discuss headache.Headaches described as a constant pressure/vice like sensation unilateral occiput, same side eyebrow, sometimes sinuses. Headaches associated with photophobia/phonophobia, rare nausea without vomiting. Denies dizziness. Denies aura. Neck can feel stiff with and without the headache.Triggers include smells, weather changes (barometric changes), menses (first half of cycle, ovulation is the worst, second half of cycle usually is a little better). Denies triggers light, sound, alcohol (does not drink), stress, sleep changes, certain foods.Reports 20 headache days per month, usually takes the Maxalt and it helps, will occur for multiple days at a time. Worst headache pain in past month was 8/10. Can usually push through, but difficult to function.Has had headaches since teenager, worsened 10 years ago. Moved from [facility] to [place]. Previously just once a blue zhang.Strenuous exercise can lead to a headache at the end.Sleep has been good. History of depression/anxiety, under control. Drinks coke daily, no effect on headaches, can get a withdrawal headache that can feel like the migraine.Scan done [address] with contrast, everything wsa normal.Has tried the following medications and treatments:Avoid NSAIDs, history of GI ulcers.Bupropion helpful for depression/anxiety, not sure of effect on headaches.Rizatriptan helpful for rescue. Taking about 20 per month. Sometimes makes tired. Can get a runny nose with it.Zyrtec no effect on headaches. Does help for the congestion.Magnesium is a little helpful for migraines.Past Meds:Qulipta 30mg with constipation, not helpful.Ubrelvy not helpfulTopamax felt like she had arm pain and chest pressure on the medication.Propranolol with sexual side effects.Ajovy did not try the medication.Sumatriptan made patient feel very anxious.Chiropractic relieves neck tension/shoulders but no effect on headaches.Massage not helpful for headaches, does help for the painful spots.Physical therapy helps with neck/upper back tightness, does not seem to help with the headaches though.Ice helps, heat worsens.This note was partially generated using the mobile [employer] voice recognition system. There may be typographical errors, spelling, or punctuation errors that were not corrected prior to committing the note to the medical record. JX-Ujottrvwa-Lietof 170 DO Work Phone: History of Present illness Narrative Note Date & Type Note Facility History of Present illness Narrative Patient with history significant for chronic migraine without aura, GI ulcers, depression, and high cholesterol here today to discuss headache.Patient notes that she does not believe the Bupropion actually led to increase in her headaches, it was decreased and initially with some improvement, but the headaches came back after awhile. On the 100 mg instant release she was beginning to feel less motivated, returned to the 300 XL and seems to be no change in the headaches while helping with her motivation/energy. She knows that the Nurtec doesn't seem to work alone, but it can be very helpful to stop the headaches if she takes it together with the Rizatriptan. She often will try the Rizatriptan first, sometimes it can work on its own. Has tried to use the magnesium for prevention, admits that she has not been consistent with it, we'll be trying to use it daily again. Notes she tried a lymphatic drainage treatment, will be watching for any improvements in her headaches with it. She notes that the dizziness has improved, did not need to pursue the physical therapy. She's decreased her overall use of the [employer]. An IUD was placed 05/2022 with her obgyn, she is continuing to observe free benefits, watching to see if it will eliminate her periods and help reduce one of the triggers for headaches. She knows that her neck is always tight, if she awakens while sleeping on her back it seems like she will awaken with a headache. Also reports recently starting Repatha, no increase in headaches after starting it though.Headaches described as a constant pressure/vice like sensation unilateral occiput, same side eyebrow, sometimes sinuses.Headaches associated with photophobia/phonophobia, rare nausea without vomiting. Denies dizziness. Denies aura.Triggers include smells, weather changes (barometric changes), menses (first half of cycle, ovulation is the worst, second half of cycle usually is a little better).Has tried the following medications and treatments:Avoid NSAIDs, history of GI ulcers.Bupropion helpful for depression/anxiety, no effect on headaches though.Rizatriptan helpful for rescue. Sometimes makes tired. Can get a runny nose with it.Nurtec can help for headaches, though Rizatriptan works better, no side effects, works very well together with Rizatriptan though.Zyrtec no effect on headaches. Does help for the congestion.Magnesium is a little helpful for migraines.Past Meds:Qulipta 30mg with constipation, not helpful.Ubrelvy not helpfulTopamax felt like she had arm pain and chest pressure on the medication.Propranolol with sexual side effects.Ajovy did not try the medication.Sumatriptan made patient feel very anxious.Chiropractic relieves neck tension/shoulders but no effect on headaches.Massage not helpful for headaches, does help for the painful spots.Physical therapy helps with neck/upper back tightness, does not seem to help with the headaches though.Ice helps, heat worsens.Record Review:02/15/2022 visit note:Patient notes that she has had fewer headaches with the decrease of the bupropion medication. She is scheduled with her SPANISH LITERATURE PROFESSOR to discuss medication options that may help with the migraines triggered during ovulation and her menses. Otherwise, she has not yet been able to try the magnesium, notes that she used to take magnesium and vitamin K supplement as she had stopped before coming in to see me. The rizatriptan sometimes works better when combined with the Nurtec, but overall the rizatriptan seems to work better than the Nurtec thus far. Has tried Nurtec 2-3 times. Notes that she has not reduce the use of her coffee yet. Patient also reports that she has been experiencing dizzy episodes lasting seconds at a time, worsens with heads movement, and occurs intermittently over the past 3 months. Does not worsen when standing from a seated position or while bearing down. She notes that she has perennial allergies, on Zyrtec, but often with sinus congestion.12/28/2021 visit note:Reports 20 headache days per month, usually takes the Maxalt and it helps, will occur for multiple days at a time. Worst headache pain in past month was 8/10. Can usually push through, but difficult to function. Neck can feel stiff with and without the headache.Has had headaches since teenager, worsened 10 years ago. Moved from [facility] to [place]. Previously just once a blue zhang. Denies triggers light, sound, alcohol (does not drink), stress, sleep changes, certain foods.Strenuous exercise can lead to a headache at the end.Sleep has been good. History of depression/anxiety, under control. Drinks coke daily, no effect on headaches, can get a withdrawal headache that can feel like the migraine.Scan done [address] with contrast, everything was normal.This note was partially generated using the [employer] voice recognition system. There may be typographical errors, spelling, or punctuation errors that were not corrected prior to committing the note to the medical record. XC-Kzkykcsie-Nvxuag 170 DO Work Phone: Hospital course Narrative Note Date & Type Note Facility Hospital course Narrative No data available for this section [facility] Hospital Discharge instructions Note Date & Type Note Facility Hospital Discharge instructions No data available for this section [facility] Progress note Note Date & Type Note Facility Progress note No data available for this section [facility] Summary Purpose Family History No Family History Records FoundNo Family History Records FoundNo Family History Records FoundNo Family History Records FoundNo Family History Records Found Advance Directives No Advanced Directives Records FoundNo Advanced Directives Records FoundNo Advanced Directives Records FoundNo Advanced Directives Records FoundNo Advanced Directives Records Found Chief Complaint HeadachesHeadaches Additional Source Comments INFORMATION SOURCE (unrecogn ized section and content) DATE CREATED AUTHOR AUTHOR'S ORGANIZ ATION 02/11/2019 [facility] DATE CREATED AUTHOR AUTHOR'S ORGANIZ ATION 02/16/2022 [facility] DATE CREATED AUTHOR AUTHOR'S ORGANIZ ATION 02/16/2022 [employer] DATE CREATED AUTHOR AUTHOR'S ORGANIZ ATION 06/06/2022 [facility] ([place]) Care Team (unrecognized sect ion and content) Care Team Personnel Name: ADRI SANON APRN-FIELD ACCOUNT DIRECTOR Position: P4 Advanced Practice Nurse Med Service: Employed Provider Member Role: Primary Care Physician Address: Address: [address] [place] [address] Care Team Related Persons Name: LEYLA COOL Address: [address] [id number] Care Team Personnel Name: ADRI SANON APRN-FIELD ACCOUNT DIRECTOR Position: P4 Advanced Practice Nurse Member Role: Primary Care Physician Address: Address: [address] [place] [address] Care Team Related Persons Name: LEYLA COOL Address: Home [address] [id number] FOR RECORDS PERTAINING TO PATIENTS WHO ARE OR HAVE BEEN ENROLLED IN A CHEMICAL DEPENDENCY/SUBSTANCEABUSE PROGRAM, SOME INFORMATION MAY BE OMITTED. This clinical summary was aggregated from multiple sources. Caution should be exercised in using it in the provision of clinical care. This summary normalizes information from multiple sources, and as a consequence, information in this document may materially change the coding, format and clinical context of patient data. In addition, data may be omitted in some cases. CLINICAL DECISIONS SHOULD BE BASED ON THE PRIMARY CLINICAL RECORDS. [email or web address] provides no warranty or guarantee of the accuracy or completeness of information in this document.
== END | disposition home or self-care (01) ==
PROVIDERS: PCP Nurse Practitioner Primary Care; Referring Provider Surgery; Visit Provider Surgery
DX: E04.1 Nontoxic single thyroid nodule (principal)
CPT/HCPCS: 76536

== ENCOUNTER → 2023-05-11 | Outpatient (CLI) | payer OTHER, SELFPAY ==
[2023-05-11 09:22] LABS: Estradiol 131.5 pg/mL; Luteinizing Hormone 11.8 mIU/mL; T4 Free Direct 0.93 ng/dL (0.76-1.46); Thyroid Stim Hormone (TSH) 1.77 uIU/mL (0.358-3.74)
== END | disposition home or self-care (01) ==
LOC: PAVLAB 08:38
PROVIDERS: PCP Nurse Practitioner Primary Care; Referring Provider Obstetrics & Gynecology; Visit Provider Obstetrics & Gynecology
DX: E04.1 Nontoxic single thyroid nodule (principal); G43.829 Menstrual migraine, not intractable, without status migrainosus
CPT/HCPCS: 36415; 82670; 83001; 83002; 84439; 84443

== ENCOUNTER → 2024-02-27 | Outpatient (CLI) | payer OTHER, SELFPAY ==
--- NOTE | 2024-02-27 14:36 | BI_ITS ---
MAMMOGRAPHY - BILATERAL SCREENING REASON FOR EXAM: Female, 48 years old. Routine annual screening examination. PERTINENT HISTORY: Aunt with breast cancer. TECHNIQUE: Digital bilateral breast blake (3D mammographic acquisition) in the CC and MLO projections. 2-D mediolateral oblique (MLO) and craniocaudad (CC) views of both breasts were obtained. CAD: Full Field Digital Mammography with Computer Added Detection was performed. COMPARISON: Comparison is made with prior study dated January 22, 2023. FINDINGS: Breast Composition: The breasts are heterogeneously dense, which may obscure small masses. There are no dominant masses or suspicious calcifications. No other significant abnormalities are identified. There has been no significant change since the prior study. BI/SCRN MAMM (CAD)W/BLAKE BILAT IMPRESSION: Stable bilateral screening mammogram. Yearly follow-up mammogram recommended. (A) ASSESSMENT CATEGORY: BIRADS Category 1: Negative. A letter regarding these results will be sent to the patient by the facility within 30 days. Approximately 10% of breast cancers are not detected by mammography. A normal mammogram should not delay biopsy of a clinically suspicious abnormality. [id number] Electronically Signed: Herberth Winkler MD at 9:09 EST ,
== END | disposition home or self-care (01) ==
PROVIDERS: PCP Nurse Practitioner Primary Care; Referring Provider Obstetrics & Gynecology; Visit Provider Obstetrics & Gynecology
DX: Z12.31 Encounter for screening mammogram for malignant neoplasm of breast (principal)
CPT/HCPCS: 77063; 77067

== ENCOUNTER → 2024-11-05 | Outpatient (CLI) | payer OTHER, SELFPAY ==
[2024-11-05 16:36] LABS: hCG Titer Quant., Serum 395 mIU/mL (<9 non-preg)
== END | disposition home or self-care (01) ==
PROVIDERS: PCP Nurse Practitioner Primary Care; Referring Provider Nurse Practitioner Women's Health; Visit Provider Nurse Practitioner Women's Health
DX: N91.2 Amenorrhea, unspecified (principal)
CPT/HCPCS: 36415; 84702

== ENCOUNTER → 2024-11-07 | Outpatient (CLI) | payer OTHER, SELFPAY ==
[2024-11-07 15:44] LABS: hCG Titer Quant., Serum 789 mIU/mL (<9 non-preg)
== END | disposition home or self-care (01) ==
LOC: LAB 14:42
PROVIDERS: PCP Nurse Practitioner Primary Care; Referring Provider Advanced Practice Midwife; Visit Provider Advanced Practice Midwife
DX: N91.2 Amenorrhea, unspecified (principal)
CPT/HCPCS: 36415; 84702